=== PATIENT | male | born 1970 | race Caucasian/White ===

== ENCOUNTER → 2020-05-30 09:29 | Outpatient (BNVA) | payer SELFPAY | PROVIDERS: PCP Nurse Practitioner Family; Referring Provider Nurse Practitioner Family; Visit Provider Urology | DX: R31.0 Gross hematuria (principal); R33.8 Other retention of urine; C67.0 Malignant neoplasm of trigone of bladder | CPT/HCPCS: 81001 ==

== ENCOUNTER 2020-06-05 14:26 | Inpatient (IN) | payer SELFPAY ==
[2020-06-04 17:25] VITALS: BMI 48.8
[2020-06-05] VITALS (22 sets, daily range): BP systolic 76–136; BP diastolic 47–89; PULSE 63–110; RESP 16–30; TEMP 36.3–37.1; O2SAT 90–100
[2020-06-05] MEDS: sodium chloride 0.9% 1,000 ML 30 ML IV (11:57)
--- NOTE | 2020-06-05 12:14 | ANES.PREANE2 ---
Pre-Anesthetic Assessment Pre-Anesthetic Assessment: Height/Weight: Height 1.8 m Weight 158.757 kg Temp Pulse Resp BP Pulse Ox 97.4 F L 63 18 118/86 97 06/05/20 11:48 06/05/20 11:48 06/05/20 11:48 06/05/20 11:48 06/05/20 11:48 Preop Diagnosis: Bladder cancer Proposed Procedure: Operation Date: 06/05/20 13:25 Proposed Procedures p Cystoscopy 25541 C67.9(Not Applicable) - Klever Coffey MD s Transurethral Resection Bladder Tumor(Not Applicable) - Klever Coffey MD Familial anesthetic complications: None Was Beta Chelsea taken within 24 hours: N/A Last intake: Intake Last Liquid Date 06/05/20 Last Liquid Time 06:30 (water) Last Solid Date 06/04/20 Last Solid Time 22:00 Social: Social History: Tobacco Exam: Pre-Anes Outpt Exam: alert, oriented x 3, clear to auscultation bilaterally and regular rate & rhythm Airway: Cervical ROM: WNL MP: 4 Dentition: Other (missing) Additional comments: gomez/mustaches large neck circumference large tongue Metabolic: Metabolic: Morbid obesity Anesthetic Plan: ASA status: 1 Anesthesia: General Risk of > 500 ml blood loss (7ml/kg in children): No Meds/Allergies Current Medications: Current Medications Generic Name Dose Route Start Last Admin Trade Name Freq PRN Reason Stop Dose Admin Sodium Chloride 1,000 mls @ 30 ml s/hr 06/05/20 08:00 06/05/20 11:57 Sodium Chloride 0.9% IV 06/06/20 07:59 30 mls/hr .Q24H NIK Administration PFSH Anesthesia PFSH: Medical History (Updated 06/02/20 @ 13:37 by Klever Coffey MD) Bladder cancer Gross hematuria Skin lesion of face Surgical History S/P appendectomy Family History Mother Diabetes CAD (coronary artery disease) Cancer Father CAD (coronary artery disease) Hypertension Social History Smoking and tobacco status: current every day smoker Alcohol intake: never Marital status: Current occupational status: employed Data Anesthesia Cardiac Studies: No Data to Display
--- NOTE | 2020-06-05 12:20 | W.PM.OPSUD ---
Surgery/Procedure H&P Update DATE OF PROCEDURE: June 05, 2020 DATE H&P PERFORMED: 05/30/20 H&P UPDATE INFORMATION: I have reviewed H&P completed within last 30 days, I have examined patient prior to procedure, No changes to prior documentation and H&[place] is in [facility] [place] indicated PREOP DIAGNOSIS: Bladder cancer PLANNED PROCEDURE: Operation Date: 06/05/20 13:25 Proposed Procedures p Cystoscopy 36294 C67.9(Not Applicable) - Klever Coffey MD s Transurethral Resection Bladder Tumor(Not Applicable) - Klever Coffey MD
[2020-06-05 12:21] LABS: Basophils # 0.1 10^3/uL (0.0-0.1); Basophils % 0.5 %; Eosinophils # 0.2 10^3/uL (0.0-0.8); Eosinophils % 1.7 %; Hematocrit 44.6 % (42.0-52.0); Hemoglobin 14.6 g/dL (11.7-16.6); Lymphocytes # 2.9 10^3/uL (0.8-4.8); Lymphocytes % 25.4 %; Mean Corpuscular HGB Conc 32.7 g/dL (30.0-36.0); Mean Corpuscular Hemoglobin 30.4 pg (28.0-34.0); Mean Corpuscular Volume 92.7 fL (80-94); Mean Platelet Volume 9.8 fL (7.4-10.4); Monocytes # 0.8 10^3/uL (0.2-0.9); Neutrophils # 7.42 10^3/uL (1.8-7.7); Neutrophils % 64.4 %; Nucleated Red Blood Cells % 0 %; Platelet Count 251 10^3/cmm (130-400); Red Blood Count 4.81 10^6/uL (4.1-5.3); Red Cell Distribution Width 13.5 % (12.1-15.1); White Blood Count 11.5 10^3/uL (4.0-10.0)
--- NOTE | 2020-06-05 13:01 | P.OP_ITS ---
Operative Report Date of procedure: June 05, 2020 Pre-op Diagnosis: Bladder cancer Post-op diagnosis: same Procedure Done: 1. Cystoscopy, transurethral section of bladder tumor large 2. Internal urethrotomy (Chatham urethrotome) for fossa navicularis stricture Specimens removed/disposition: Bladder tumor resection material Surgeon: Alexx Anesthesia: General Estimated blood loss: Minimal Urine output: Not measured Complications: None Findings: Narrow fossa navicularis stricture that could not accommodate the 25 American continuous flow resectoscope sheath even with Mally dilation. Utilized Chatham urethrotome to adequately open so that the scope could be placed. Large papillary bladder tumor lateral to the left ureteral orifice. [place] of smaller tumors around the base of the larger bladder tumor. 2 anterior bladder wall tumor is also. (>5 cm diameter) All lesions resected. Condition: stable Disposition: PACU Brief History: Jose is a very pleasant 49-year-old white male with a long history of tobacco abuse who recently was evaluated for gross hematuria and was found to have a papillary lesion in the bladder consistent with a large TCCA. Located just lateral to the left ureteral orifice. There are also some satellite lesions around the base with total diameter >5 cm. Admitted for TURBT Procedure: After routine preoperative evaluation examination and obtaining of informed consent he was taken to the operating suite on 06/05/2020 where general anesthesia was administered without difficulty after appropriate timeout was per formed, SCDs confirmed to be functioning, preoperative antibiotics administered, beta-madison protocol confirmed. Prepped and draped in the usual sterile fashion in dorsolithotomy position pain careful attention to avoiding pressure points. 21 American cystoscope with 30 degree lens was introduced into the urethral meatus and advanced into the bladder under videoscopy. The bladder was systematically examined and the findings of above were confirmed. The urethra was then calibrated with Mally sounds and after 26 American it was quite difficult to dilate. A 28 American was partially passed into the urethral meatus but it was not enough to pass the 25 continuous flow sheath and for that reason Dharmesh urethrotome was utilized to make a 12:00 incision through the fossa navicularis and meatus which allowed easily passage of the 25 American sheath. 2% lidocaine jelly was injected into the urethra and then a 25 American continuous flow resectoscope sheath with visual obturator in place was advanced into the bladder under videoscopy. The [employer] bipolar system with the super loop and button probe were utilized for resection and fulguration. The left ureteral orifice was identified in relationship to the planned resection site and was medial to the tumor. Bladder tumor was resected with the super loop down to the base. Deep resection of the base of the tumor into the visualized muscle well below the contour of the bladder mucosa were conducted.. Several satellite lesions around the base were also resected completely. The ureteral orifice was spared from resection and was not involved in tumor directly. 2 additional tumors were identified on the anterior bladder wall and these were completely destroyed with fulguration down to the base. They also appear to be very well differentiated. At the completion of the procedure hemostasis was visually confirmed. All tumor chips/specimens were confirmed to be out of the bladder having been removed with an Draft evacuator. The bladder was then drained with a 20 American three-way Dodson catheter with a catheter plug inserted in the irrigation port. He tolerated the procedure well without complications and was awakened in the operating room and returned to the recovery in stable condition. PLANS: 1. Mitomycin instillation tomorrow morning. 2. May maintain Dodson catheter discharge over the weekend for healing following the urethrotomy Associated Problem List Diagnoses (1) Bladder cancer: Qualifiers: Bladder location: trigone Qualified Code(s): 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
[2020-06-05] MEDS: levofloxacin-dextrose 5 % 500 MG/100 ML PREMIX 100 MG IV (13:05)
[2020-06-05] MEDS: lidocaine 2% Urojet 20 mL TOPICAL (13:18)
[2020-06-05 14:07] LABS: Alanine Aminotransferase 23 U/L (0-41); Albumin Level 4.4 g/dL (3.5-5.2); Alkaline Phosphatase 90 IU/L (40-130); Aspartate Amino Transferase 20 U/L (0-40); Blood Urea Nitrogen 11 mg/dL (6-20); Calcium 9.7 mg/dL (8.5-10.5); Carbon Dioxide 26 mmol/L (22-29); Chloride 103 mmol/L (98-107); Globulin 3.2 g/dL (1.3-4.6); Glomerular Filtration Rate 119.4 mL/min (90-130); Glucose 106 mg/dL (65-115); Osmolality Calculated 282 mOsm/kg (285-295); Sodium 138 mmol/L (136-145); Total Bilirubin 0.3 mg/dL (0.15-1.2); Total Protein 7.6 g/dL (6.6-8.7)
[2020-06-05 14:11] LABS: Anion Gap 13.4 (5-19); Potassium 4.4 mmol/L (3.5-5.1)
--- NOTE | 2020-06-05 14:35 | SUR.PHASEI ---
1406 PATIENT TO PACU FROM OR. DRY COUGH. RR UNLABORED. SPO2 98% ON SIMPLE MASK AT 8L. KEARNEY CATH IN PLACE, DRAINING CLEAR, YELLOW URINE.
--- NOTE | 2020-06-05 14:59 | SUR.PHASEI ---
1443 PATIENT TO MED SURG. KEARNEY CATH IN PLACE, DRAINING, YELLOW URINE RED TENT. MINIMAL PAIN.
--- NOTE | 2020-06-05 15:27 | ECG_ITS ---
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 Measurements Intervals [place] Rate: 99 P: 65 IA: 108 QRS: -53 QRSD: 101 T: 39 QT: 371 QTc: 478 Interpretive Statements SINUS RHYTHM WITH SHORT IA INTERVAL LEFT ANTERIOR FASCICULAR BLOCK [QRS AXIS <= -45, QR IN I, RS IN II] INTERPRETATION BASED ON A DEFAULT AGE OF 40 YEARS No previous ECG available for comparison Electronically Signed On 06-05-2020 23:03:50 CDT by Dee Burrell M.D. [id number] xavi
--- NOTE | 2020-06-05 15:35 | XR_ITS ---
WS: [id number] EXAM: AP CHEST: PORTABLE UPRIGHT DATE OF EXAM: 06/05/2020, 1731 hours COMPARISON: NONE HISTORY: Patient is 49 years old with possible pulmonary embolus. FINDINGS: The cardiac silhouette is slightly enlarged The mediastinal contours are normal. The pulmonary v ascularity is normal. The lungs are clear of infiltrate. There is no effusion or pneumothorax. No acute bony abnormality is seen. Defibrillator pad overlies the left lower chest and upper abdomen re gion. XR/XR chest 1V portable 34327 IMPRESSION: Slight cardiomegaly. No acute pulmonary disease.
[2020-06-05] MEDS: sodium chloride 0.9% 1,000 ML 999 ML IV (15:45)
[2020-06-05 15:52] LABS: ABG PCO2 38.3 mmHg (35-45); ABG PH Result 7.33 (7.35-7.45); Base Excess ABG -5.1 mmol/L (-2.0-2.0); Blood Gas Allen Test Pos; Blood Gas Operator Identificat glc; Blood Gas Sample Site Radial, left; Blood Gas Sample Type Arterial; Carboxyhemoglobin 2.3 %THgb (0.4-20.1); HCO3 ABG 20.3 mmol/L (22-26); HGB O2 Sat 97.3 % (95-100); Methemoglobin < 0.0 % (0.4-1.5); Oxygen Device NRB; Total Hemoglobin 16.3 g/dL (14-18)
[2020-06-05 16:11] LABS: D Dimer 0.77 ug/mIFEU (0-0.59)
[2020-06-05] MEDS: diphenhydrAMINE 50 mg/mL SDV 1mL 25 MG IVP (16:13)
[2020-06-05] MEDS: famotidine 20 mg/2 mL INJ (16:13)
[2020-06-05 16:14] LABS: Alanine Aminotransferase 18 U/L (0-41); Albumin Level 3.5 g/dL (3.5-5.2); Alkaline Phosphatase 74 IU/L (40-130); Anion Gap 17.8 (5-19); Aspartate Amino Transferase 15 U/L (0-40); Blood Urea Nitrogen 13 mg/dL (6-20); Calcium 8.2 mg/dL (8.5-10.5); Carbon Dioxide 20 mmol/L (22-29); Chloride 104 mmol/L (98-107); Globulin 2.5 g/dL (1.3-4.6); Glomerular Filtration Rate 70.9 mL/min (90-130); Glucose 202 mg/dL (65-115); Osmolality Calculated 288 mOsm/kg (285-295); Potassium 3.8 mmol/L (3.5-5.1); Sodium 138 mmol/L (136-145); Total Bilirubin 0.3 mg/dL (0.15-1.2)
[2020-06-05] MEDS: EPINEPHrine 2.5 MG in sodium chloride 0.9% 250 ML 6.1 MG IV (16:16)
--- NOTE | 2020-06-05 16:25 | P.HP_ITS ---
Providers/Chief Complaint Admitting Physician: Klever Coffey MD Primary Care Provider: FRANTZ Chan Chief Complaint: cystoscopy History of Present Illness Jose Reis is a 49 year old male with history of hematuria and recently diagnosed bladder cancer who presented today for cystoscopy and transurethral resection of the bladder tumor. Postprocedure he was brought up to the floors where he was noted to be hypotensive with blood pressure with systolic ranging between 60-80, he was beginning to have a diffuse rash/hives all over. He also complained of chest pain and breathing difficulty, as if his throat was closing up. He was diagnosed with anaphylactic reaction.. This received epinephrine 0.3 mg IM pushes twice. He has been moved to the ICU and started on an epinephrine infusion. Also received Benadryl 50 mg IV and Pepcid. Solu-Medrol 125 mg has also been given at this time. Since moving to the ICU and been started on epinephrine drip his blood pressure has stabilized with the last one being 114/76. 2 L of IV fluid boluses have been given. ABG was performed which is 7.33/30 8.3/1 39/99.6. Hemoglobin is stable at 15. EKG shows sinus rhythm with a short NH interval but otherwise no acute ST-T changes to suggest CT. Troponins have been drawn and are pending at this time. His rash was progressing rapidly while on the floor, since being moved to the ICU and started on the drip, it appears to be improving at this time. Review of Systems General: Reports: ROS unobtainable due to medical condition Medications/Allergies Home Medications Medication Instructions Recorded Confirmed Last Taken Type No Known Home Medications 05/30/20 06/05/20 Unknown History Allergies Allergy/AdvReac Type Severity Reaction Status Date / Time No Known Allergies Allergy Unverified 05/30/20 09:22 PFSH Acute 2 PFSH: Medical History Bladder cancer Gross hematuria Skin lesion of face Surgical History S/P appendectomy Family History Mother Diabetes CAD (coronary artery disease) Cancer Father CAD (coronary artery disease) Hypertension Social History Smoking and tobacco status: current every day smoker Alcohol intake: never Marital status: Current occupational status: employed Vitals/I&O/Wt Last Vital Signs Temp 97.5 F L 06/05/20 15:05 Pulse 84 06/05/20 15:05 Resp 16 06/05/20 15:05 BP 85/60 06/05/20 15:05 Pulse Ox 90 06/05/20 15:05 06/05/20 06/05/20 06/05/20 06:59 14:59 22:59 Intake Total 1100 / 1100 Output Total 0 / 0 Balance 1100 / 1100 Weight last 48 hrs Weight 158.757 kg Physical Exam Narrative: EXAM NARRATIVE: GEN: Awake, alert and oriented, in moderate distress, developing hives all over including bilateral lower extremity upper extremity trunk and back. Unable to visualize the uvula. RS: CTA B/L Abd: Soft, nt/nd , bs+ ORGANIZATIONAL RESEARCH CONSULTANT: no focal neuro deficits Urinary Catheter Management^: 3-way Urethral CBI: Cath Placed During This Visit: yes Urinary Catheter Date of Insertion: 06/05/20 Urinary Catheter Time of Insertion: 13:58 Data : 06/05/20 11:55 06/05/20 15:32 Micro: Microbiology 06/05/20 15:46 Blood Culture - Preliminary Blood SPECIMEN COLLECTED 06/05/20 15:32 Blood Culture - Preliminary Blood SPECIMEN COLLECTED A&P Assessment and plan (1) Anaphylactic shock: Status: Acute (2) Bladder cancer: Status: Acute Qualifiers: Bladder location: trigone Qualified Code(s): 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 Coding Level of Care Code Acute [place] for g Fwd Diagnoses Anaphylactic shock T78.2XXA Bladder cancer C67.0 Bladder location: trigone
--- NOTE | 2020-06-05 16:38 | P.CONIM_ITS ---
Providers/Reason For Consult Consulting Physican/Specialty*: Merry Puentes MD Reason for Consult*: hypotension, chest pain Attending Physician: Klever Coffey MD Primary Care Provider: FRANTZ Chan History of Present Illness History of Present Illness Jose Reis is a 49 year old male with history of hematuria and recently diagnosed bladder cancer who presented today for cystoscopy and transurethral resection of the bladder tumor. Postprocedure he was brought up to the floors where he was noted to be hypotensive with blood pressure with systolic ranging between 60-80, he was beginning to have a diffuse rash/hives all over. He also complained of chest pain and breathing difficulty, as if his throat was closing up. Signs consistent with anaphylactic reaction. This received epinephrine 0.3 mg IM pushes twice. He has been moved to the ICU and started on an epinephrine infusion. Also received Benadryl 50 mg IV and Pepcid. Solu-Medrol 125 mg has also been given at this time. Since moving to the ICU and been started on epinephrine drip his blood pressure has stabilized with the last one being 114/76. 2 L of IV fluid boluses have been given. ABG was performed which is 7.33/30 8.3/1 39/99.6. Hemoglobin is stable at 15. EKG shows sinus rhythm with a short LA interval but otherwise no acute ST-T changes to suggest HI. Troponins have been drawn and are pending at this time. His rash was progressing rapidly while on the floor, since being moved to the ICU and started on the drip, it appears to be improving at this time. Review of Systems General: Reports: ROS unobtainable due to medical condition Meds/Allergies Home Medications and Allergies Home Medications Medication Instructions Recorded Confirmed Last Taken Type No Known Home Medications 05/30/20 06/05/20 Unknown History Allergies Allergy/AdvReac Type Severity Reaction Status Date / Time No Known Allergies Allergy Unverified 05/30/20 09:22 Current Medications Current Medications Generic Name Dose Route Start Last Admin Trade Name Freq PRN Reason Stop Dose Admin Sodium Chloride 1,000 mls @ 999 mls/hr 06/05/20 15:45 06/05/20 15:45 Sodium Chloride 0.9% IV 06/05/20 17:45 999 mls/hr .Q1H1M NIK Administration Epinephrine HCl 2.5 mg/ Sodium 252.5 mls @ 0 mls/hr 06/05/20 16:15 06/05/20 16:16 Chloride IV 1 mcg/min .Q0M NIK 6.1 mls/hr Administration Protocol Per Protocol PFSH Acute PFSH: Medical History Bladder cancer Gross hematuria Skin lesion of face Surgical History S/P appendectomy Family History Mother Diabetes CAD (coronary artery disease) Cancer Father CAD (coronary artery disease) Hypertension Social History Smoking and tobacco status: current every day smoker Alcohol intake: never Marital status: Current occupational status: employed Vitals/I&O/Wt Last Vital Signs Temp 97.5 F L 06/05/20 15:05 Pulse 84 06/05/20 15:05 Resp 16 06/05/20 15:05 BP 85/60 06/05/20 15:05 Pulse Ox 90 06/05/20 15:05 06/05/20 06/05/20 06/05/20 06:59 14:59 22:59 Intake Total 1100 / 1100 Output Total 0 / 0 Balance 1100 / 1100 Weight last 48 hrs Weight 158.757 kg Physical Exam Narrative: EXAM NARRATIVE: GEN: Awake, alert and oriented, moderate amount of distress CVS: S1S2 N RS: CTA B/L Abd: Soft, nt/nd , bs+ PSYCH TECH: no focal neuro deficits Urinary Catheter Management^: 3-way Urethral CBI: Cath Placed During This Visit: yes Urinary Catheter Date of Insertion: 06/05/20 Urinary Catheter Time of Insertion: 13:58 Data Micro: Micro: Microbiology 06/05/20 15:46 Blood Culture - Pr eliminary Blood SPECIMEN COLLE SENA 06/05/20 15:32 Blood Culture - Pr eliminary Blood SPECIMEN [facility] SENA A&P Assessment and plan (1) Anaphylactic shock: Status: Acute (2) Bladder cancer: Status: Acute Qualifiers: Bladder location: trigone Qualified Code(s): 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 (3) Gross hematuria: Status: Acute (4) Chest pain: Status: Acute Qualifiers: Chest pain type: unspecified Qualified Code(s): R07.9 - Chest pain, unspecified Additional A&P Information # anaphylactic shock Now status post epinephrine IM 0.3 mg twice, no significant response with BP dropping to 60s systolic Started on epinephrine drip after transfer to the ICU, currently at 1 steph per minute Also received Benadryl 50 mg IV Solu-Medrol 125 mg IV pushes Hives appear to be improving at this time. Blood pressure initially dropped to a low of 60 systolic, now improved on epi drip to 136/77. Continue steroids with Solu-Medrol 60 mg IV every 8 hours. Titrate down epi drip as tolerated Closely monitor respiratory status chest pain likely from anaphylaxis, however will check EKG and troponin series to r/o acute cardiac event, stat echocardiogram Unclear trigger, may be related to either levaquin vs one of the anesthetic agents hold off on further abx for now, mami op cover adequate with levaquin for now Supplemental 02 to keep sats >92% Coding Level of Care Code Acute Vocational Rehab Consultant for g Fwd Diagnoses Anaphylactic shock T78.2XXA Bladder cancer C67.0 Bladder location: trigone Gross hematuria R31.0 Chest pain R07.9 Chest pain type: unspecified
[2020-06-05] MEDS: sodium chloride 0.9% 1,000 ML 125 ML IV (17:03)
--- NOTE | 2020-06-05 17:27 | ECG_ITS ---
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 Measurements Intervals [place] Rate: 84 P: 58 NE: 140 QRS: -47 QRSD: 104 T: 29 QT: 407 QTc: 482 Interpretive Statements SINUS RHYTHM LEFT ANTERIOR FASCICULAR BLOCK [QRS AXIS <= -45, QR IN I, RS IN II] Compared to ECG 06/05/2020 15:21:39 Short NE interval no longer present Electronically Signed On 06-05-2020 23:35:53 CDT by Dee Burrell M.D. [id number]
--- NOTE | 2020-06-05 17:48 | ANE.PACU2 ---
Inpatient post-anesthesia follow up: Airway intact: Yes Vital signs: Temperature 97.5 F Pulse Rate 90 Respiratory Rate 22 Blood Pressure 110/79 Pulse Oximetry 99 Oxygen Delivery Me thod [ Non-Rebreather Current Rate & Del ernie] Oxygen Delivery Me thod Nasal Cannula Oxygen Flow Rate [ Current Rate 15 & Delivery] Oxygen Flow Rate 3 Fraction of Inspir ed Oxygen Hydration adequate: Yes Nausea and vomiting: No Pain level: 1 Mental status: Baseline Additional Comments: Patient developed anaphylactic shock shortly after arriving on floor, requiring aggressive resuscitiation. Brought to ICU. Stable now. Patient receved levaquin, succinylcholine, rocuronium, neostigmine and glycopyrrolate during his anesthestic. Most likely culprit would be muscle relaxants. Suggest allergy testing in case patient requires future surgeries.
[2020-06-05 17:58] LABS: Troponin 5 2HR 12.67 ng/L (0-15)
[2020-06-05] MEDS: ondansetron 2 mg/ML SDV 2 mL 4 MG IVP (19:12)
[2020-06-05 19:36] LABS: Troponin(5th) Baseline 17 ng/L (0-15)
[2020-06-05 20:27] LABS: Troponin 5 2HR Delta -4.33 ABS# (0-10)
--- NOTE | 2020-06-05 21:27 | ECG_ITS ---
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 Measurements Intervals [place] Rate: 106 P: 46 NM: 136 QRS: -45 QRSD: 89 T: 19 QT: 346 QTc: 461 Interpretive Statements SINUS TACHYCARDIA MARKED LEFT AXIS DEVIATION [QRS AXIS < -30] PATTERN CONSISTENT WITH PULMONARY DISEASE Compared to ECG 06/05/2020 17:18:34 Left-axis deviation now present Sinus rhythm no longer present Left anterior fascicular block no longer present Electronically Signed On 06-05-2020 23:36:08 CDT by Dee Burrell M.D. [id number]
[2020-06-06] VITALS (24 sets, daily range): BP systolic 91–164; BP diastolic 68–103; PULSE 70–132; RESP 14–31; TEMP 36.6–37.3; O2SAT 91–96
[2020-06-06] MEDS: sodium chloride 0.9% 1,000 ML 125 ML IV ×2 (01:02→09:28)
[2020-06-06] MEDS: diphenhydrAMINE 50 mg/mL SDV 1mL 25 MG IVP ×2 (03:33→16:36)
--- NOTE | 2020-06-06 04:09 | PC.NURSE ---
0333 - Patient reports increased itching to arms and hands. Rash to chest area appears decreased but arms and hands appear more red and slightly swollen. 25mg benadryl given IVP as ordered. 0400 - Resting comfortably in bed, reports that itching is much better. No increase in rash noted, no reports of shortness of breath.
[2020-06-06 07:52] LABS: Glucose Point of Care 264 mg/dL (70-110)
--- NOTE | 2020-06-06 11:22 | PC.NURSE ---
V.O. from Dr. Sánchez: 1) Pepcid 20 mg IV q12 hrs 2) Benadryl 25 mg po q6 hrs scheduled
--- NOTE | 2020-06-06 11:41 | PC.NURSE ---
Dr. Sánchez notified of Glucose of 264 this AM, V.O. given for mild sliding scale Novolog
[2020-06-06] MEDS: diphenhydrAMINE 25 mg Capsule PO ×2 (11:59→19:22)
[2020-06-06 12:04] LABS: Glucose Point of Care 248 mg/dL (70-110)
--- NOTE | 2020-06-06 13:01 | PC.CHAP ---
Pastoral Care Encounter/Spiritual Assessment Type of Contact [] Declined barrel liner visit [] Patient/Family/Request visit [] Outpatient visit [] Follow-up visit [] Physician referral [] Code/Alert [x] Routine visit [] Staff referral [] Actively dying [x] Patient sleeping [] Family support [] [] Out of room [] Palliative care [] [] Receiving care in room [] Pre-surgical visit [] Trauma [] Long length of stay [x] ICU visit [] Other: Relational/Emotional Strength [] Patient feels connected with others/family/visitors/staff [] Distress [] Loneliness/isolation [] Abandonment Spirituality of Patient [] Person of Mar [] Attends Anabaptist of their Mar [] Believes in Prayer [] Reads Bible or Anabaptism materials [] There are Spiritual issues to be addressed Box Coverer Hand Interventions [] Prayer [] Active listening [] Non-anxious presence [] Spiritual/emotional support [] Crisis/trauma care [] Spiritual counseling [] Bereavement support [] Provided bereavement packet [] Provided Bible/devotional materials [] Provided toy/stuffed animal, coloring book to patient or family member [] Provided Communion [] Anointing/[place] [] Salvation [] Completed spiritual assessment [] Other: Impact on Illness or Injury [] Angry [] Fearful [] Anxious [] Often cries [] Exhaustion [] Unable to work [] Unable to attend latter day [] Unable to walk/stand [] Unable to read [] Unable to drive [] Unable to eat/drink [] Unable to sleep [] Unable to be with family [] Patient intubated [] Other: Summary Patient is sleeping and appears to be resting comfortably. No movements that would indicate discomfort. Box Coverer Hand referred patient for follow up visit from [facility] barrel liner. Time spent with patient 3 minutes
--- NOTE | 2020-06-06 14:24 | PM.PN ---
Subjective Subjective: Interval history: Urology follow-up: Postoperative day #1 TURBT large Doing much better. Had a an anaphylactic reaction postoperatively yesterday requiring aggressive medical therapy and resuscitation. In ICU with close monitoring and has been stable but has had some flaring of the reaction overnight. Very much appreciate Dr. Puentes's expertise in managing this critical situation. I reviewed the intraoperative findings with the patient. Recommended postoperative mitomycin PROCEDURE: Intravesical chemotherapy (mitomycin) The bladder was drained and 40 mg of mitomycin and normal saline was instilled into the bladder under low pressure. Tolerated well. The drainage port was plugged with a Dodson catheter plug. Instructed the nurses to drain the medication per protocol at 1 hour or sooner if he becomes uncomfortable. He will be staying again overnight due to the anaphylactic concerns. I will see him in the morning and if everything looks good I will probably send him home with a Dodson catheter in place mostly because of the fossa navicularis stricture treatment that was required in order to pass the scope. Medications: Reviewed: Yes Vitals/I&O/Wt Last Vital Signs Temp 97.9 F 06/06/20 08:00 Pulse 98 06/06/20 12:00 Resp 16 06/06/20 12:00 BP 145/103 06/06/20 12:00 Pulse Ox 94 06/06/20 12:00 06/05/20 06/06/20 06/06/20 22:59 06:59 14:59 Intake Total 1083.54 / 2183.54 1497.917 / 3681.457 1150 / 1150 Output Total 275 / 275 250 / 525 Balance 808.54 / 1908.54 1247.917 / 3156.457 1150 / 1150 Weight last 48 hrs Weight 350 lb Physical Exam Const: COMMON NORMALS: no acute distress, alert and well nourished GENERAL APPEARANCE: well kempt and well developed ORIENTATION/CONSCIOUSNESS: not confused Neck/C-Spine: COMMON NORMALS: full ROM Resp: COMMON NORMALS: normal respiratory effort EFFORT & INSPECTION: No labored and No Actively coughing Neuro: SENSORIUM/ORIENTATION: Yes alert Psych: COMMON NORMALS: mental status grossly normal APPEARANCE: Yes grossly normal and Yes well kempt ATTITUDE: Yes calm and Yes engaged Skin: NARRATIVE SKIN EXAM: Still with some upper extremity hives Urinary Catheter Management^: 3-way Urethral CBI: Cath Placed During This Visit: yes Reason for Continuing Indwelling Catheter: Accurate Measurement of Urinary Output in Critically Ill Patients Urinary Catheter Date of Insertion: 06/05/20 Urinary Catheter Time of Insertion: 13:58 Data : 06/05/20 11:55 06/05/20 15:32 Micro: Microbiology 06/05/20 15:46 Blood Culture - Preliminary Blood SPECIMEN COLLECTED 06/05/20 15:32 Blood Culture - Preliminary Blood SPECIMEN COLLECTED A&P Assessment and plan (1) Bladder cancer: Final path pending. 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 Status: Acute Attestations Medical Necessity Statement*: Still significant concern about the potential for anaphylaxis. 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
--- NOTE | 2020-06-06 15:17 | PM.PN ---
Subjective Subjective: Interval history: Patient has been off epinephrine infusion since last night. He is currently hemodynamically stable except for intermittent tachycardia.overnight he did have some hives after the epinephrine drip was turned off, however this is more manifesting as a skin rash at this time, improving with Benadryl. He is saturating well on room air at 94 to 96%. 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 Urinary Catheter Management^: 3-way Urethral CBI: Cath Placed During This Visit: yes Reason for Continuing Indwelling Catheter: Accurate Measurement of Urinary Output in Critically Ill Patients Urinary Catheter Date of Insertion: 06/05/20 Urinary Catheter Time of Insertion: 13:58 Data : 06/05/20 11:55 06/05/20 15:32 Micro: Microbiology 06/05/20 15:46 Blood Culture - Preliminary Blood SPECIMEN COLLECTED 06/05/20 15:32 Blood Culture - Preliminary Blood SPECIMEN COLLECTED A&P Assessment and plan (1) Anaphylactic shock: Status: Acute (2) Bladder cancer: Status: Acute Qualifiers: Bladder location: trigone Qualified Code(s): 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 (3) Gross hematuria: Status: Resolved (4) Chest pain: Status: Acute Qualifiers: Chest pain type: unspecified Qualified Code(s): R07.9 - Chest pain, unspecified Additional A&P Information # anaphylactic shock s/p epinephrine IM 0.3 mg x2 followed by epinephrine infusion, titrated off overnight Hemodynamiocally stable since then, however still having intermittent scattered rash over body Start benadryl 25mg po q6h as scheduled medication, continue steroids for now, taper to 60mg iv q12h Continue to closely monitor respiratory status, given that still with intermittent rash, needs to be watched closely for delayed mast cell activation chest pain likely from anaphylaxis, now resolved, patient feels well this afternoon. troponin series without significant deltas, no acute ST-T changes on EKG. Unclear trigger for reaction may be related to either levaquin vs one of the muscle relaxants, will need allergy testing as outpatient. Supplemental 02 to keep sats >92% Epi pen ordered for outpatient use as needed # Bladder cancer s/p cystoscopy and resection yesterday, mami op coverage with levaquin yesetrday, would avoid further doses until allergy test can be performed. If needed, B lactam abx may be an option. 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
[2020-06-06] MEDS: famotidine 20 mg/2 mL INJ IVP (15:32)
[2020-06-06 17:03] LABS: Glucose Point of Care 214 mg/dL (70-110)
--- NOTE | 2020-06-06 17:27 | PC.RESP ---
SMOKING CESSATION INFORMATION SENT TO PATIENT.
[2020-06-06] MEDS: sodium chloride 0.9% 1,000 ML 10 ML IV (17:35)
[2020-06-06 21:58] LABS: Glucose Point of Care 220 mg/dL (70-110)
[2020-06-07] VITALS (14 sets, daily range): BP systolic 108–158; BP diastolic 72–119; PULSE 65–100; RESP 13–25; TEMP 37; O2SAT 92–95
[2020-06-07] MEDS: diphenhydrAMINE 25 mg Capsule PO ×3 (01:00→13:05)
[2020-06-07] MEDS: famotidine 20 mg/2 mL INJ IVP (03:04)
[2020-06-07 03:08] LABS: Basophils % 0.2 %; Hematocrit 41.2 % (42.0-52.0); Hemoglobin 13.3 g/dL (11.7-16.6); Lymphocytes # 1.8 10^3/uL (0.8-4.8); Lymphocytes % 10.4 %; Mean Corpuscular HGB Conc 32.3 g/dL (30.0-36.0); Mean Corpuscular Hemoglobin 30.3 pg (28.0-34.0); Mean Corpuscular Volume 93.8 fL (80-94); Mean Platelet Volume 9.8 fL (7.4-10.4); Monocytes # 1.1 10^3/uL (0.2-0.9); Monocytes % 6.5 %; Neutrophils # 14.12 10^3/uL (1.8-7.7); Neutrophils % 81.7 %; Nucleated Red Blood Cells % 0 %; Platelet Count 236 10^3/cmm (130-400); Red Blood Count 4.39 10^6/uL (4.1-5.3); Red Cell Distribution Width 13.6 % (12.1-15.1); White Blood Count 17.3 10^3/uL (4.0-10.0)
[2020-06-07] MEDS: sodium chloride 0.9% 1,000 ML 10 ML IV (03:12)
[2020-06-07 03:30] LABS: Alanine Aminotransferase 13 U/L (0-41); Albumin Level 3.3 g/dL (3.5-5.2); Alkaline Phosphatase 50 IU/L (40-130); Anion Gap 13.6 (5-19); Aspartate Amino Transferase 11 U/L (0-40); Blood Urea Nitrogen 26 mg/dL (6-20); Calcium 8.3 mg/dL (8.5-10.5); Carbon Dioxide 20 mmol/L (22-29); Chloride 105 mmol/L (98-107); Glomerular Filtration Rate 70.9 mL/min (90-130); Glucose 204 mg/dL (65-115); Osmolality Calculated 281 mOsm/kg (285-295); Potassium 4.6 mmol/L (3.5-5.1); Sodium 134 mmol/L (136-145); Total Bilirubin 0.2 mg/dL (0.15-1.2); Total Protein 5.3 g/dL (6.6-8.7)
[2020-06-07 03:55] LABS: Estmated Average Glucose 126
[2020-06-07 08:12] LABS: Glucose Point of Care 197 mg/dL (70-110)
--- NOTE | 2020-06-07 10:06 | P.PN_ITS ---
Subjective Subjective: Interval history: Symptomatically much improved today. Patient has remained hemodynamically stable off the epinephrine drip. Few rashes that were still present yesterday have now completely resolved. Patient is eating and drinking and tolerating this well.. Denies any dyspnea or chest pain. Leukocytosis noted on labs this morning, likely to be a result of margination from high-dose steroids. 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 Extremities: Resolved rash Urinary Catheter Management^: 3-way Urethral CBI: Cath Placed During This Visit: yes Reason for Continuing Indwelling Catheter: Accurate Measurement of Urinary Output in Critically Ill Patients Urinary Catheter Date of Insertion: 06/05/20 Urinary Catheter Time of Insertion: 13:58 Data : 06/07/20 02:55 06/07/20 02:55 Micro: Microbiology 06/05/20 15:46 Blood Culture - Preliminary Blood NEGATIVE TO DATE 06/05/20 15:32 Blood Culture - Preliminary Blood NEGATIVE TO DATE A&P Assessment and plan (1) Anaphylactic shock: Status: Acute (2) Bladder cancer: Status: Acute Qualifiers: Bladder location: trigone Qualified Code(s): 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 Steroids were tapered down to 60 mg IV every 12h yesterday and may now be stopped on discharge. Can continue Benadryl 25mg po q6h as needed on discharge. Chest pain likely from anaphylaxis, now resolved, no complaints of dyspnea. Troponin series without significant deltas, no acute ST-T changes on EKG concerning for ACS. Unclear trigger for reaction may be related to either levaquin vs one of the muscle relaxants, will need allergy testing as outpatient. Referral provided to Dr. Delgado for the same. Saturating well on room air at this present time. Epi pen ordered for outpatient use as needed, patient instructed on usage after delivered at bedside. # Bladder cancer s/p cystoscopy and resection, mami op coverage with levaquin yesterday, would avoid further doses of the same until allergy test can be perf ormed. If needed, B lactam abx such as Keflex may be an option. # hyperglycemia, likely steroid induced, HbA1c at 6.0, consistent with pre diabetes. Educated about low carb, low fat diet, will need follow up with PCP. # Leukocytosis at 17, no other overt signs of sepsis. Blood cx remains negative. patient stable off abx. Likely to be margination from high dose steroids. Stable for discharge today from medical standpoint. 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
--- NOTE | 2020-06-07 10:24 | P.DS_ITS ---
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 There appeared to be satellite lesions at the base and pos sibly additional masses on the anterior bladder wall. He was admitted for TURBT. No contraindications. Hospital Course Discharge Summary: Admitted on the day of the procedure which went well. He had 2 lesions on the anterior bladder wall which were completely fulgurated and a large bladder tumor lateral to the left ureteral orifice and not involving the orifice which was completely resected deeply into the muscle wall. Several satellite lesions were also resected at the base of the larger bladder tumor. Additional findings included a fossa navicularis stricture requiring internal ureterotomy with Accident urethrotome to pass the scope. Catheter was left indwelling. Postoperatively within several hours of his procedure he developed anaphylactic shock. Was resuscitated and sent to the ICU for further management. Was maintained on epi drip until safely weaned off. On postoperative day #1 he was given mitomycin 40 mg intravesical instillation and tolerated well. Maintained the medication for approximately 1 hour. By postoperative day #2 he had recovered well from the events described above and was felt to be a reasonable candidate for further convalescence at home and was discharged in stable condition. Discharge planning had been instituted regarding follow-up for testing regarding risk factors for future anaphylaxis. He has a reasonable chance of requiring surgical intervention in the future given his primary diagnosis of bladder cancer making the testing that much more essential. All of this was discussed in detail with the patient expressed good understanding and agreed to be compliant for follow-up. Was discharged home with a catheter in place for further healing of the fossa navicularis incision with plans for voiding trial on 06/09/2020 in my office. Will instruct in [facility] to help prevent recurrence. Physical Exam Const: COMMON NORMALS: no acute distress, alert and well nourished GENERAL APPEARANCE: well kempt and well developed ORIENTATION/CONSCIOUSNESS: not confused Resp: COMMON NORMALS: normal respiratory effort EFFORT & INSPECTION: No labored and No Actively coughing Neuro: SENSORIUM/ORIENTATION: Yes alert Psych: COMMON NORMALS: mental status grossly normal APPEARANCE: Yes grossly normal and Yes well kempt ATTITUDE: Yes calm and Yes engaged Skin: COMMON NORMALS: no rashes or lesions noted and no jaundice GENERAL SKIN EXAM: no rashes or lesions noted Urinary Catheter Management^: 3-way Urethral CBI: Cath Placed During This Visit: yes Reason for Continuing Indwelling Catheter: Accurate Measurement of Urinary Output in Critically Ill Patients Urinary Catheter Date of Insertion: 06/05/20 Urinary Catheter Time of Insertion: 13:58 Discharge Data Data Completed and Pending: Completed Studies During Hospitalization Category Date Time Status XR chest 1V darius ble [id number] Routine Exams 06/05/20 15:35 Completed Pending at discharge Category Date Time Status Blood Culture Sta t Lab 06/05/20 15:46 Results Pathology: Surgic al [PTH] Routine Pth 06/06/20 12:11 Received Labs from last 24 hours 06/07/20 06/07/20 06/07/20 08:05 02:55 02:55 WBC RBC Hgb Hct MCV MCH MCHC RDW Plt Count MPV Neut % (Auto) Lymph % (Auto) [place] % (Auto) Eos % (Auto) Baso % (Auto) Neut # (Auto) Lymph # (Auto) [place] # (Auto) Eos # (Auto) Baso # (Auto) Nucleated RBC % (a uto) Nucleated RBCs # Sodium 134 L Potassium 4.6 Chloride 105 Carbon Dioxide 20 L Anion Gap 13.6 BUN 26 H Creatinine 1.1 GFR Calculation 70.9 L Glucose 204 H POC Glucose 197 Estimat Average Gl ucose 126 Hemoglobin A1c 6.0 Calculated Osmolal ity 281 L Calcium 8.3 L Total Bilirubin 0.2 AST 11 ALT 13 Alkaline Phosphata se 50 Total Protein 5.3 L Albumin 3.3 L Globulin 2.0 06/07/20 06/06/20 06/06/20 02:55 21:01 17:01 WBC 17.3 H RBC 4.39 Hgb 13.3 Hct 41.2 L MCV 93.8 MCH 30.3 MCHC 32.3 RDW 13.6 Plt Count 236 MPV 9.8 Neut % (Auto) 81.7 Lymph % (Auto) 10.4 [place] % (Auto) 6.5 Eos % (Auto) 0.0 Baso % (Auto) 0.2 Neut # (Auto) 14.12 H Lymph # (Auto) 1.8 [place] # (Auto) 1.1 H Eos # (Auto) 0.0 Baso # (Auto) 0.0 Nucleated RBC % (a uto) 0 Nucleated RBCs # 0.0 Sodium Potassium Chloride Carbon Dioxide Anion Gap BUN Creatinine GFR Calculation Glucose POC Glucose 220 214 Estimat Average Gl ucose Hemoglobin A1c Calculated Osmolal ity Calcium Total Bilirubin AST ALT Alkaline Phosphata se Total Protein Albumin Globulin 06/06/20 12:01 WBC RBC Hgb Hct MCV MCH MCHC RDW Plt Count MPV Neut % (Auto) Lymph % (Auto) [place] % (Auto) Eos % (Auto) Baso % (Auto) Neut # (Auto) Lymph # (Auto) [place] # (Auto) Eos # (Auto) Baso # (Auto) Nucleated RBC % (a uto) Nucleated RBCs # Sodium Potassium Chloride Carbon Dioxide Anion Gap BUN Creatinine GFR Calculation Glucose POC Glucose 248 Estimat Average Gl ucose Hemoglobin A1c Calculated Osmolal ity Calcium Total Bilirubin AST ALT Alkaline Phosphata se Total Protein Albumin Globulin Vitals: Last Vital Signs Temp 98.6 F 06/06/20 20:00 Pulse 69 06/07/20 04:00 Resp 16 06/07/20 04:00 BP 135/72 06/07/20 04:00 Pulse Ox 94 06/07/20 04:00 Discharge Plan Discharge Condition: Stable Prescriptions: New epinephrine 0.3 mg/0.3 mL auto-injector 0.3 mg IM Q10M PRN (Reason: anaphylaxis) Qty: 1 RF: 2 Pepcid 20 mg tablet 20 mg PO BID 10 Days Qty: 20 RF: 0 Benadryl 25 mg capsule 25 mg PO Q8H PRN (Reason: allergic reaction) 5 Days Qty: 30 RF: 0 Discharge Orders: Discharge Order (Routine); Ordered 06/07/20 Ordered By: Klever Coffey Referrals: Klever Coffey MD [Physician] - 06/09/20 (voiding trial, [facility] for stricture patency maintenance ) Jason Delgado MD [Physician] - (allergy testing-anaphylaxis post procedure? allergy to muscle relaxants ) Discharge Diet: Usual diet Discharge Activity: Limit activity as instructed Activity Restrictions/Additional Instructions: Please call [phone] on Tuesday morning for appointment that morning for voiding trial and catheterization training. 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
[2020-06-07 11:43] LABS: Glucose Point of Care 201 mg/dL (70-110)
--- NOTE | 2020-06-07 14:10 | PC.NURSE ---
Dr Coffey gave pt choice between current melissa bag or leg bag. Pt chose melissa bag and took two leg bag to change for tonight and tomorrow. Has appt Tuesday morning for retraining. Will assess need for more supplies at that time. ICU only had one leg bag. [facility] only had one leg bag. Both sent. 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 Educated pt regardless. Wheeled pt to car after discharge. Showed supplies and demonstrated. denied questions and stated she was familiar with process. Pt denies pain or needs. No S/S of distress. Pt thanked all of us for excellent care.
== END 2020-06-07 13:00 | disposition home or self-care (01) | DRG 669 ==
LOC: MEDSURG 14:27 → ICU 16:04
PROVIDERS: Student in an Organized Health Care Education/Training Program; Admitting Provider Urology; PCP Nurse Practitioner Family; Visit Provider Urology
PROC: 0TJB8ZZ Inspection of Bladder, Via Natural or Artificial Opening Endoscopic (ICD-10-PCS; CPT 52000; principal; 2020-06-05 12:30)
PROC: 0TBB8ZZ Excision of Bladder, Via Natural or Artificial Opening Endoscopic (ICD-10-PCS; 2020-06-05 12:30)
DX: C67.0 Malignant neoplasm of trigone of bladder (principal); T78.2XXA Anaphylactic shock, unspecified, initial encounter; F17.210 Nicotine dependence, cigarettes, uncomplicated; I95.9 Hypotension, unspecified; R07.9 Chest pain, unspecified; L50.9 Urticaria, unspecified
CPT/HCPCS: 12345; 36415; 36416; 36600; 71045; 80053; 82805; 82962; 83036; 84484; 85025; 85378; 87040; 88305; 93005; 96372; 96375; G0378; J0171; J1200; J1815; J1956; J2405; J2710; J2930; J3010; J3490; J7030; J7050; J9280

== ENCOUNTER → 2020-08-26 15:09 | Outpatient (BNVA) | payer SELFPAY | PROVIDERS: PCP Nurse Practitioner Family; Visit Provider Urology | DX: C67.0 Malignant neoplasm of trigone of bladder (principal); N99.115 Postprocedural fossa navicularis urethral stricture; R39.9 Unspecified symptoms and signs involving the genitourinary system; N32.81 Overactive bladder | CPT/HCPCS: 81003 ==

== ENCOUNTER 2020-10-29 09:36 | Outpatient (CLI) | payer SELFPAY ==
--- NOTE | 2020-10-29 09:30 | XR_ITS ---
WS: [id number] KUB, 10/29/2020 Clinical Data: STONE Comparison: None. Findings: No abnormal intraabdominal masses or calcifications are seen. There is no dilatated small bowel or ev idence of obstruction. XR/XR KUB [id number] Impression: Negative KUB.
== END 2020-10-29 09:37 | disposition home or self-care (01) ==
PROVIDERS: PCP Nurse Practitioner Family; Visit Provider Urology
DX: N20.9 Urinary calculus, unspecified (principal)
CPT/HCPCS: 74018; 81003; 82365; 87086; 88300

== ENCOUNTER → 2021-03-25 13:06 | Outpatient (BNVA) | payer SELFPAY | PROVIDERS: PCP Nurse Practitioner Family; Visit Provider Urology | DX: C67.0 Malignant neoplasm of trigone of bladder (principal); N21.0 Calculus in bladder; N99.115 Postprocedural fossa navicularis urethral stricture; Z98.890 Other specified postprocedural states | CPT/HCPCS: 81003 ==

== ENCOUNTER → 2021-08-05 10:18 | Outpatient (BNVA) | payer SELFPAY | PROVIDERS: PCP Nurse Practitioner Family; Visit Provider Urology | DX: C67.0 Malignant neoplasm of trigone of bladder (principal); N21.0 Calculus in bladder; N99.115 Postprocedural fossa navicularis urethral stricture | CPT/HCPCS: 81003 ==

== ENCOUNTER → 2022-03-16 08:07 | Outpatient (BNVA) | payer SELFPAY | PROVIDERS: PCP Nurse Practitioner Family; Visit Provider Urology | DX: C67.0 Malignant neoplasm of trigone of bladder (principal) | CPT/HCPCS: 81003 ==

== ENCOUNTER → 2023-03-03 09:04 | Outpatient (BNVA) | payer SELFPAY | PROVIDERS: PCP Nurse Practitioner Family; Visit Provider Urology | DX: C67.9 Malignant neoplasm of bladder, unspecified (principal) | CPT/HCPCS: 88112 ==

== ENCOUNTER 2025-07-16 14:54 | Outpatient (CLI) | payer SELFPAY ==
--- NOTE | 2025-07-16 15:07 | XR_ITS ---
WS: [id number] XR KUB [id number] REASON FOR EXAM: K59.00 - Constipation, unspecified FINDINGS: Unremarkable bowel gas pattern. No bowel distention or significant volume of retained stool. No free air or retroperitoneal air. No mass or organomegaly. No focal bony abnormality of the lumbar spine or bony pelvis. XR/XR KUB [id number] IMPRESSION: No significant abnormality.
[2025-07-16 16:37] LABS: Hematocrit 45.7 % (37-53); Hemoglobin 15.40 g/dL (11.27-16.99); Mean Corpuscular HGB Conc 33.7 g/dL (30-55); Mean Corpuscular Hemoglobin 30.4 pg (27-33); Mean Corpuscular Volume 90.3 fl (82-101); Nucleated Red Blood Cells % 0 %; Platelet Count 280 10^3/cmm (157-399); Red Blood Count 5.06 10^6/uL (3.85-5.65); White Blood Count 12.62 10^3/uL (3.29-11.43)
[2025-07-16 17:36] LABS: Alanine Aminotransferase 16 U/L (0-41); Albumin Level 4.4 g/dL (3.5-5.2); Alkaline Phosphatase 106 U/L (40-130); Anion Gap 15.8 (5-19); Aspartate Amino Transferase 10 U/L (0-40); Blood Urea Nitrogen 14 mg/dL (6-20); Calcium 9.4 mg/dL (8.5-10.5); Carbon Dioxide 27 mmol/L (22-29); Chloride 103 mmol/L (98-107); Cholesterol 187 mg/dL (0-200); Globulin 3.1 g/dL (1.3-4.6); Glucose 85 mg/dL (65-115); HDL Cholesterol 29 mg/dL (60-100); Osmolality Calculated 294 mOsm/kg (285-295); Potassium 3.8 mmol/L (3.5-5.1); Sodium 142 mmol/L (136-145); Total Protein 7.5 g/dL (6.6-8.7); Triglycerides 146 mg/dL (0-150)
== END 2025-07-16 14:55 | disposition home or self-care (01) ==
PROVIDERS: PCP Nurse Practitioner Family; Visit Provider Nurse Practitioner Family
DX: K59.00 Constipation, unspecified (principal); R53.83 Other fatigue; I10 Essential (primary) hypertension
CPT/HCPCS: 36415; 74018; 80053; 80061; 85025

== ENCOUNTER → 2025-08-02 08:06 | Outpatient (BNVA) | payer SELFPAY | PROVIDERS: PCP Nurse Practitioner Family; Visit Provider Nurse Practitioner Family | DX: R53.83 Other fatigue (principal); R10.9 Unspecified abdominal pain | CPT/HCPCS: 85025; 87338 ==